=== PATIENT | female | born 1960 | race Caucasian/White ===

== ENCOUNTER 2016-10-29 14:13 | Emergency (ER) | payer MEDICARE, OTHER ==
[~2016-10-29] VITALS: Ht 142.2 cm; Wt 44.5 kg
--- NOTE | ~2016-10-29 | CR229 ---
[facility] A Service of [facility] RADIOLOGY TEXT RESULTS PATIENT: TRISTAN LAMBERT LOCATION: [facility] [employer] [facility] : 58 UNIT #: [id number] AGE: [address]: Marcelle Galvan MD SEX: F ORDER DR: [id number] [facility] [address] [place], [place] [address] [id number] E MR#: [id number] Acc #: [id number] NAME: TRISTAN LAMBERT. : 1960 SEX: F STUDY DATE/TIME: 10/29/2016 16:38 UNIT: [facility] ROOM: STUDY DESCRIPTION: CR Shoulder Min 2 View Lt Attending Physician: Marcelle Galvan M.D. Ordering Physician: Marcelle Galvan M.D. Primary Care Physician: Sagrario Elkins M.D. MEDICAL IMAGING REPORT This report is preliminary unless electronic signature is present EXAM Left shoulder, 10/29/2016 INDICATION 56-year-old female with pain in the left shoulder and humerus. History of malignancy (not otherwise specified). No trauma. Pain in the shoulder and upper arm. TECHNIQUE 2 views of the left shoulder were performed. COMPARISON 08/14/2016 FINDINGS Somewhat high-riding humeral head may reflect underlying rotator cuff tear. There is degenerative change of the AC joint and of the glenohumeral joint. No acute fracture. IMPRESSION 1. No acute fracture. Degenerative change of the AC joint and glenohumeral joint. 2. Somewhat high riding left humeral head which may reflect a rotator cuff tear. Dictated by... Gary Salgado M.D. THIS IS AN ELECTRONICALLY VERIFIED REPORT Gary Salgado M.D. at 10/31/2016 6:14 AM Elmer TD: 10/30/2016 07:51 [facility] A Service of [facility] RADIOLOGY TEXT RESULTS PATIENT: TRISTAN LAMBERT LOCATION: [facility] : 58 UNIT #: [id number] AGE: [address]: Marcelle Galvan MD SEX: F ORDER DR: JOB #: [id number] MEDICAL IMAGING REPORT Page 1 of 1 COPY
--- NOTE | ~2016-10-29 | US140 ---
[facility] A Service of [facility] RADIOLOGY TEXT RESULTS PATIENT: TRISTAN LAMBERT LOCATION: [facility] : 58 UNIT #: [id number] AGE: [address]: Marcelle Galvan MD SEX: F ORDER DR: [id number] [facility] [address] [place], [place] [address] [id number] E MR#: [id number] Acc #: [id number] NAME: TRISTAN LAMBERT. : 1960 SEX: F STUDY DATE/TIME: 10/29/2016 17:12 UNIT: [facility] ROOM: STUDY DESCRIPTION: US UE Veins Unilat or Ltd Stdy Attending Physician: Marcelle Galvan M.D. Ordering Physician: Marcelle Galvan M.D. Primary Care Physician: Sagrario Elkins M.D. MEDICAL IMAGING REPORT This report is preliminary unless electronic signature is present EXAM Ultrasound left upper extremity veins HISTORY Left upper extremity swelling for 2 weeks with increased pain today. 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 FINDINGS Real-time ultrasonography of the left upper extremity venous structures performed. Whiteside-scale color Doppler, Doppler pulse-wave interrogation utilized. The left internal jugular, subclavian, axillary, brachial veins are patent with normal compressibility where anatomically possible. Normal color Doppler interrogation demonstrating rybe-nm-ezin flow. The cephalic and basilic veins are patent with normal compressibility. There is no evidence of deep or superficial venous thrombosis at time of this examination. IMPRESSION Left upper extremity shows no evidence of deep or superficial venous thrombosis at time of this examination. Dictated by... Robert Williamson M.D. THIS IS AN ELECTRONICALLY VERIFIED REPORT Robert Williamson M.D. at 11/01/2016 1:22 PM Violette TD: 10/30/2016 08:31 JOB #: [id number] [facility] A Service of [facility] RADIOLOGY TEXT RESULTS PATIENT: TRISTAN LAMBERT LOCATION: [facility] : 58 UNIT #: [id number] AGE: [address]: Marcelle Galvan MD SEX: F ORDER DR: MEDICAL IMAGING REPORT Page 1 of 1 COPY
--- NOTE | ~2016-10-29 | CT125 ---
[facility] A Service of [facility] RADIOLOGY TEXT RESULTS PATIENT: TRISTAN LAMBERT LOCATION: [facility] : 58 UNIT #: [id number] AGE: [address]: Marcelle Galvan MD SEX: F ORDER DR: [id number] [facility] [address] [place], [place] [address] [id number] E MR#: [id number] Acc #: [id number] NAME: TRISTAN LAMBERT. : 1960 SEX: F STUDY DATE/TIME: 10/29/2016 19:21 UNIT: [facility] ROOM: STUDY DESCRIPTION: CT Upper Ext Lt W Cont Attending Physician: Marcelle Galvan M.D. Ordering Physician: Marcelle Galvan M.D. Primary Care Physician: Sagrario Elkins M.D. MEDICAL IMAGING REPORT This report is preliminary unless electronic signature is present EXAM CT left upper extremity with IV contrast. HISTORY Left arm swelling and pain today. No injury. FINDINGS CT left upper extremity was performed from the shoulder to the elbow with IV contrast. This CT exam was performed with one or more of the following radiation dose reduction techniques: automatic exposure control, adjustment of mA and/or kV according to patient size, and iterative reconstruction. No evidence of abscess. Mild stranding within the biceps muscle and in the subcutaneous fat surrounding the biceps muscle could be secondary inflammation or edema or intramuscular contusion. No fracture. No opaque soft tissue foreign body. Mild degenerative changes in the shoulder. Small shoulder effusion. IMPRESSION 1. Soft tissue stranding within the left biceps muscle and in the overlying subcutaneous tissues could be secondary to inflammation or edema or intramuscular contusion. However, there is no evidence of abscess. No fracture or opaque soft tissue foreign body. 2. Degenerative changes in the left shoulder including small shoulder effusion. Dictated by... Cristobal Boothe M.D. THIS IS AN ELECTRONICALLY VERIFIED REPORT Cristobal Boothe M.D. at 10/30/2016 2:38 PM DFL/leia TD: 10/30/2016 10:41 [facility] A Service of [facility] RADIOLOGY TEXT RESULTS PATIENT: TRISTAN LAMBERT LOCATION: [facility] #: [id number] : 58 UNIT #: [id number] AGE: [address]: Marcelle Galvan MD SEX: F ORDER DR: JOB #: [id number] MEDICAL IMAGING REPORT Page 1 of 1 COPY
--- NOTE | ~2016-10-29 | CT55 ---
[facility] A Service of [facility] RADIOLOGY TEXT RESULTS PATIENT: TRISTAN LAMBERT LOCATION: [facility] : 58 UNIT #: [id number] AGE: [address]: Marcelle Galvan MD SEX: F ORDER DR: [id number] [facility] [address] [place], [place] [address] [id number] E MR#: [id number] Acc #: [id number] NAME: TRISTAN LAMBERT. : 1960 SEX: F STUDY DATE/TIME: 10/29/2016 19:21 UNIT: [facility] ROOM: STUDY DESCRIPTION: CT Chest W Con Attending Physician: Marcelle Galvan M.D. Ordering Physician: Marcelle Galvan M.D. Primary Care Physician: Sagrario Elkins M.D. MEDICAL IMAGING REPORT This report is preliminary unless electronic signature is present EXAM CT chest with contrast 10/29/2016 HISTORY 56-year-old female with chest pain beginning today. COMPARISON None. TECHNIQUE Helical scan performed through the chest following administration of IV contrast. Coronal and sagittal reformatted images. This CT examination was performed with one or more of the following radiation dose reduction techniques: automatic exposure control, adjustment of mA and/or kV according to patient size, and iterative reconstruction. FINDINGS Thoracic aorta normal in course and caliber without dissection. Heart size is normal. There is a small to moderate pericardial effusion measuring approximately 1.4 cm in thickness. No pleural effusions. No pneumothorax. There are patchy infiltrates in the right upper lobe, lingula, and bilateral lower lobes. Findings concerning for multifocal pneumonia and follow up to resolution recommended. Scanning through the upper abdomen demonstrates atrophic washoe kidneys. Gallbladder surgically absent. Pneumobilia. No acute bony abnormality. IMPRESSION 1. Small to moderate pericardial effusion measuring 1.4 cm in thickness. 2. Patchy infiltrates in the right upper lobe, lingula, and bilateral [facility] A Service of [facility] RADIOLOGY TEXT RESULTS PATIENT: TRISTAN LAMBERT LOCATION: [facility] : 58 UNIT #: [id number] AGE: [address]: Marcelle Galvan MD SEX: F ORDER DR: lower lobes, concerning for multifocal pneumonia. Follow up to resolution recommended. 3. Cholecystectomy with pneumobilia. 4. Bilateral atrophic washoe kidneys. Dictated by... Kirt Ladd M.D. THIS IS AN ELECTRONICALLY VERIFIED REPORT Kirt Ladd M.D. at 10/30/2016 5:09 PM CRISTIANA/valerio TD: 10/30/2016 10:23 JOB #: [id number] MEDICAL IMAGING REPORT Page 1 of 1 COPY
--- NOTE | ~2016-10-29 | CR156 ---
[facility] A Service of [facility] RADIOLOGY TEXT RESULTS PATIENT: TRISTAN LAMBERT LOCATION: [facility] : 58 UNIT #: [id number] AGE: [address]: Marcelle Galvan MD SEX: F ORDER DR: [id number] [facility] [address] [place], [place] [address] [id number] E MR#: [id number] Acc #: [id number] NAME: TRISTAN LAMBERT. : 1960 SEX: F STUDY DATE/TIME: 10/29/2016 16:39 UNIT: [facility] ROOM: STUDY DESCRIPTION: CR Humerus Min 2 View Lt Attending Physician: Marcelle Galvan M.D. Ordering Physician: Marcelle Galvan M.D. Primary Care Physician: Sagrario Elkins M.D. MEDICAL IMAGING REPORT This report is preliminary unless electronic signature is present EXAM Left humerus, 10/29/2016 INDICATION Pain in the left humerus and shoulder. History of malignancy (not otherwise specified). No trauma. Shoulder and upper arm pain on the left. Chronic symptoms. FINDINGS There is no acute fracture. There are degenerative changes of the left shoulder involving the glenohumeral joint and AC joint. Soft tissues unremarkable. IMPRESSION Degenerative change of the left shoulder otherwise negative. Dictated by... Gary Salgado M.D. THIS IS AN ELECTRONICALLY VERIFIED REPORT Gary Salgado M.D. at 10/31/2016 6:14 AM Elmer TD: 10/30/2016 08:00 JOB #: [id number] MEDICAL IMAGING REPORT Page 1 of 1 COPY
--- NOTE | ~2016-10-29 | CR72 ---
[facility] A Service of [facility] RADIOLOGY TEXT RESULTS PATIENT: TRISTAN LAMBERT LOCATION: [facility] : 58 UNIT #: [id number] AGE: [address]: Marcelle Galvan MD SEX: F ORDER DR: [id number] [facility] [address] [place], [place] [address] [id number] E MR#: [id number] Acc #: [id number] NAME: TRISTAN LAMBERT. : 1960 SEX: F STUDY DATE/TIME: 10/29/2016 16:37 UNIT: [facility] ROOM: STUDY DESCRIPTION: CR Chest Single View Portable Attending Physician: Marcelle Galvan M.D. Ordering Physician: Marcelle Galvan M.D. Primary Care Physician: Sagrario Elkins M.D. MEDICAL IMAGING REPORT This report is preliminary unless electronic signature is present EXAM Portable chest. HISTORY Chronic left side chest pain. No injury. FINDINGS Cardiac size and pulmonary vascularity are normal. Minimal left upper thoracic curve and right mid thoracic curve. Moderate degenerative changes in the right shoulder with narrowed subacromial space. Fusion hardware across T11-T12. Surgical clips in the right upper quadrant. IMPRESSION No acute findings. No active disease in the lungs. Dictated by... Cristobal Boothe M.D. THIS IS AN ELECTRONICALLY VERIFIED REPORT Cristobal Boothe M.D. at 10/30/2016 2:35 PM DFL/pc TD: 10/30/2016 08:04 JOB #: [id number] MEDICAL IMAGING REPORT Page 1 of 1 COPY
[~2016-10-29 14:13] MED LIST: ACTONEL PO; AMITRYPTYLINE PO; AZASAN75 MG PO; AZATHIOPRINE50 M2 PO; BUMETANIDE0.5 MG PO; CYANOCOBAL1000 MCG/M INJ; DOXEPIN HCL25 MG PO; FERRO-TIME325 MG PO; FLUOXETINE HCL20 M1 PO; FLUOXETINE HCL40 M1 PO; FLUOXETINE HCL40 MG PO; FOLIC ACID1 MG PO; IMURAN50 MG PO; K-DUR20 ME1 PO; K-DUR20 ME2 PO; LOVENOX30 MG/0.3 INJ; LOVENOX40 MG/0.4 INJ; LOVENOX40 MG/0.4 SUBQ; METHADONE HCL10 MG PO; METHADONE PO; MYSOLINE50 MG PO; NEURONTIN300 MG PO; PERCOCET 7.5-31 EACH PO; PERCOCET5/325 PO; PERCOCET7.5 PO; PERPHENAZINE2 MG PO; PREDNISONE PO; PRIMIDONE50 MG PO; PROGESTERONE200 MG PO; PROZAC PO; SEROQUEL XR400 M1 PO; SEROQUEL300 MG PO; SEROQUEL400 MG PO; VITAMIN B12; VITAMIN D50000 UNIT PO; XARELTO10 MG PO; [UNRECOGNIZED DRUG - REMARK]
[2016-10-29 17:26] LABS: BASOPHIL% 0.5 % (0-2.5); EOSINOPHIL# 0.1 X10e3 (0-0.7); EOSINOPHIL% 1.3 % (0.0-7.0); HEMATOCRIT 33.4 % (35.0-45.0); HEMOGLOBIN 11.4 gm/dL (12.0-16.0); LYMPHOCYTE# 1.1 X10e3 (1.0-3.5); LYMPHOCYTE% 27.8 % (17.0-45.0); MEAN CELL VOLUME 102.9 FL (83-96); MEAN CORPUSCULAR HEMOGLOBIN 35.2 PG (28-34); MEAN CORPUSCULAR HGB CONC 34.2 g/dL (30-36); MEAN PLATELET VOLUME 7.9 FL (6.5-11.5); MONOCYTE# 0.4 X10e3 (0-1.0); MONOCYTE% 10.6 % (3.0-12.0); NEUTROPHIL# 2.5 X10e3 (1.5-7.1); NEUTROPHIL% 59.8 % (40-75); PLATELET COUNT 238 X10e3 (140-420); RED BLOOD COUNT 3.24 X10e (3.90-5.30); RED CELL DISTRIBUTION WIDTH 16.1 % (11.0-15.5); WHITE BLOOD COUNT 4.1 X10e3 (4.0-10.5)
[2016-10-29 17:33] LABS: DIFF IND NO
[2016-10-29 17:44] LABS: INR 0.9; PARTIAL THROMBOPLASTIN TIME 24.1 SECONDS (23.5-31.3); PROTHROMBIN TIME (PATIENT) 10.3 SECONDS (10.0-11.7)
[2016-10-29 17:52] LABS: ALBUMIN SERUM 3.4 g/dL (3.5-5.0); BILIRUBIN, DIRECT 0.1 mg/dL (0.0-0.2); BILIRUBIN,INDIRECT 0.2 mg/dL (0.0-0.9); BILIRUBIN,TOTAL 0.3 mg/dL (0.2-2.0); BUN/CREATININE RATIO 16.36; CALCIUM SERUM 8.7 mg/dL (8.4-10.2); CREATININE SERUM 1.1 mg/dL (0.6-1.4); GLOM FILT RATE Estimated 55.7 mL/min (>60); POTASSIUM 4.3 mmol/L (3.5-5.1); PROTEIN TOTAL SERUM 5.8 g/dL (6.0-8.3)
== END 2016-10-29 22:50 | disposition home or self-care (01) ==
LOC: CED 14:13
PROVIDERS: Emergency Medicine
DX: M79.89 Other specified soft tissue disorders (principal); J18.9 Pneumonia, unspecified organism; I50.9 Heart failure, unspecified; F32.9 Major depressive disorder, single episode, unspecified; M19.90 Unspecified osteoarthritis, unspecified site; Z85.89 Personal history of malignant neoplasm of other organs and systems; Z94.0 Kidney transplant status; Z79.899 Other long term (current) drug therapy; Z88.5 Allergy status to narcotic agent; Z88.8 Allergy status to other drugs, medicaments and biological substances
CPT/HCPCS: 36415; 71010; 71260; 73030; 73060; 73201; 80048; 80076; 85025; 85610; 85730; 93971; 96361; 96374; 96375; 99284; J0696; J2270; J2405; Q9967

== ENCOUNTER → 2016-10-31 | Outpatient (CLI) | payer MEDICARE, OTHER ==
--- NOTE | ~2016-10-31 | EKG ---
PATIENT: TRISTAN LAMBERT UNIT #: [id number] Ventricular Rate: 69 BPM Atrial Rate: 69 BPM P-R Interval: 144 ms QRS Duration: 88 ms Q-T Interval: 446 ms QTC Calculation(Bezet): 477 ms P [place]: 37 degrees Calculated R [place]: 78 degrees Calculated T [place]: 80 degrees Diagnosis Line: Normal sinus rhythm Diagnosis Line: Normal ECG Diagnosis Line: When compared with ECG of 29-JUN-2014 12:03, Diagnosis Line: No significant change was found Diagnosis Line: Confirmed by DURAN DENNIS MD ([id number]) on 10/31/2016 Diagnosis Line: 7:48:18 PM INTERPRETING MD: JEANNIE CARMEN
== END | disposition home or self-care (01) ==
LOC: CEKG 12:13
DX: I50.9 Heart failure, unspecified (principal)
CPT/HCPCS: 93005